=== PATIENT | male | born 1965 | race Caucasian/White ===

== ENCOUNTER 2016-07-21 09:53 | Emergency (ER) | payer OTHER ==
[~2016-07-21] VITALS: Ht 190.5 cm; Wt 99.1 kg
[2016-07-21 09:58] VITALS: BP 151/95; PULSE 67; RESP 16; TEMP 98.2; O2SAT 99
--- NOTE | 2016-07-21 10:20 | PD ---
HPI Chief Complaint: Injury Time Seen by Provider: 10:02 Travel History International Travel<30 days: No Contact w/Intl Traveler<30days: No Traveled to known affect area: No History of Present Illness HPI Is a 50-year-old man who presents to the emergency department complaining of left knee pain ongoing for 3 days. He states symptoms started after he was crouching down and stood up. He's had pain and swelling in the left leg in the since that time. Swelling goes down when he elevates the leg and comes back at the end of the day. He called his doctor who is worried that he may have a blood clot or an infection. 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 He's never really had trouble with his knee. He has pain and pressure behind the knee as well. He otherwise has been feeling generally well and healthy prior to this. History Past Medical History Narrative Medical History of left clavicle osteomyelitis Social History Alcohol Use: No Tobacco Use: No Allergies-Medications (Allergen,Severity, Reaction): Coded Allergies: Contrast Media (Unverified Allergy, Severe, rash, 07/21/16) Flagyl (Unverified Allergy, Severe, Blurred Vision, 07/21/16) Iodine (Verified Allergy, Severe, RASH, 07/21/16) Keflex (Verified Allergy, Severe, RASH, 07/21/16) Prednisone (Unverified Allergy, Severe, tingling sensation over body, 07/21) Reported Meds & Prescriptions Reported Meds & Active Scripts Active No Active Prescriptions or Reported Medications Review of Systems Except as stated in HPI: all other systems reviewed are Neg Physical Exam Narrative GENERAL: Well-appearing 50 year-old woman, no acute distress. SKIN: Warm and dry. CARDIOVASCULAR: Warm and well perfused. RESPIRATORY: Normal rate and effort. MUSCULOSKELETAL: Focus examination the left leg reveals left knee effusion. Is a little bit of fullness in the popliteal fossa as well. There is no calf tenderness. There is no erythema or redness. He has pretty preserved range of motion without much pain. He cannot fully flex knee says because of tightness in the knee. He has good pulses distally. There is a trace amount of warmth in the knee compared to the right. NEUROLOGICAL: Awake and alert. No gross deficits. Data Data Last Documented VS Vital Signs Date Time Temp Pulse Resp B/P Pulse Ox O2 Delivery O2 Flow Rate FiO2 07/21/16 09:58 98.2 67 16 151/95 99 Orders Knee, Complete (4vws) (07/21/16 ) Us Leg Venous Doppler (07/21/16 ) [facility] Medical Decision Making Medical Screen Exam Complete: Yes Emergency Medical Condition: Yes Interpretation(s) Left knee x-ray: Negative Doppler left lower extremity: Negative Differential Diagnosis Knee pain, internal derangement, arthritis, septic arthritis, DVT, other Narrative Course Medical decision making This is a 50-year-old man presents emergent heart complaining of left knee pain and swelling that started after he stood from a crouched position. He has an effusion there. I think he did in her something inside his knee. Suspect a meniscal tear or something similar. He has an obvious effusion. There is no evidence of DVT. There is no redness or limitation in his range of motion that would suggest a septic arthritis. Symptoms started abruptly after knee movement that would suggest an injury. We'll check x-ray, suspect will be normal except for an effusion. We'll recommend compression, and outpatient follow-up with his primary she is not well in one to 2 weeks, return for any worsening erythema, redness, or Swelling. Diagnosis Primary Impression: Left knee pain Qualified Code: M25.562 - Acute pain of left knee Additional Instructions: Wear Eddy wrap or on the left knee. Take ibuprofen or Aleve as needed for pain. Follow-up with her primary doctor if symptoms are not improved in 7-10 days. Return to the emergency department for any worsening pain redness swelling or any other new or worsening symptoms. Med/Other Pt SpecificInfo: No Change to Meds Scripts No Active Prescriptions or Reported Meds Disposition: 01 DISCHARGE HOME Condition: Stable Mehdi Rebollar MD Jul 21, 2016 10:20
--- NOTE | 2016-07-21 10:44 | RADHPO ---
EXAM DATE/TIME: 07/21/2016 10:22 [facility] COMPARISON: No previous studies available for comparison. INDICATIONS : Left knee pain with no known injury. MEDICAL HISTORY : None. SURGICAL HISTORY : None. ENCOUNTER: Initial ACUITY: 3 days PAIN SCORE: 2/10 LOCATION: Left above patella FINDINGS: Four view examination of the left knee demonstrates no evidence of fracture or dislocation. Bony min eralization is normal. The articular surfaces are intact. The suprapatellar soft tissues have a nor mal configuration. CONCLUSION: Negative for fracture or dislocation. Follow up in 7-10 days is suggested if symptoms persist.. Sundeep Arrieta MD FACR on July 21, 2016 at 10:42 Board Certified Radiologist. This report was verified electronically.
[2016-07-21 11:20] VITALS: BP 147/90; PULSE 79; RESP 16; O2SAT 97
--- NOTE | 2016-07-21 11:33 | RADHPO ---
EXAM DATE/TIME: 07/21/2016 11:08 [facility] COMPARISON: No previous studies available for comparison. INDICATIONS : Left leg pain and swelling. MEDICAL HISTORY : Osteomyelitis. Sleep apnea. Left leg and knee pain. SURGICAL HISTORY : Irrigation and debridement of left chest due to osteomyelitis. ENCOUNTER: Initial ACUITY: 4 - 6 days PAIN SCORE: 3/10 LOCATION: Left leg. TECHNIQUE: Venous ultrasound of the leg was performed from the inguinal ligament to the proximal calf. Real-time, color Doppler and spectral tracing, compression and augmentation techniques were us ed. FINDINGS: There is normal compressibility of the deep venous system from the inguinal region to the proximal ca lf. No echogenic clot is seen in the lumen of the common femoral, femoral, popliteal, and posterior tibial veins. There is a normal response of the venous system to proximal and distal augmentation an d respiration. CONCLUSION: Negative for deep venous thrombosis. Sundeep Arrieta MD FACR on July 21, 2016 at 11:31 Board Certified Radiologist. This report was verified electronically.
== END 2016-07-21 12:00 | disposition home or self-care (01) ==
LOC: PHED 09:53
DX: M25.562 Pain in left knee (principal); M79.89 Other specified soft tissue disorders
CPT/HCPCS: 73564; 93971

== ENCOUNTER 2016-09-18 23:23 | Emergency (ER) | payer OTHER ==
[~2016-09-18] VITALS: Ht 190.5 cm; Wt 98.5 kg
[2016-09-18 23:30] VITALS: BP 138/91; PULSE 63; RESP 18; TEMP 97.4; O2SAT 100
[2016-09-19] MEDS ORDERED: ONDANSETRON HCL 4 MG/2 ML VIAL IV PUSH ONE
[2016-09-19] MEDS ORDERED: SODIUM CHLOR 0.9% 1000 ML INJ 1,000 ML IV SCH
[2016-09-19] MEDS ORDERED: SODIUM CHLORIDE 0.9% FLUSH 10 ML FLUSH IV FLUSH PRN
--- NOTE | 2016-09-19 00:30 | RADHPO ---
EXAM DATE/TIME: 09/19/2016 00:20 [facility] COMPARISON: No previous studies available for comparison. INDICATIONS : Chest discomfort, nausea, abdominal pain. MEDICAL HISTORY : None. SURGICAL HISTORY : None. ENCOUNTER: Initial ACUITY: 1 day PAIN SCORE: 0/10 LOCATION: Bilateral chest FINDINGS: A single view of the chest demonstrates the lungs to be symmetrically aerated without evidence of mas s, infiltrate or effusion. The cardiomediastinal contours are unremarkable. Osseous structures are intact. CONCLUSION: Normal examination. Mehdi Adams MD on September 19, 2016 at 0:28 Board Certified Radiologist. This report was verified electronically.
[2016-09-19 00:31] LABS: AUTOMATED NEUTROPHIL # 7.5 TH/MM3 (1.8-7.7); BASOPHIL % 0.2 % (0.0-2.0); EOSINOPHIL # 0.2 TH/MM3 (0-0.4); EOSINOPHIL % 1.7 % (0.0-4.0); HEMATOCRIT 46.2 % (39.0-51.0); HEMO FLAGS DIFF FINAL; LYMPH % 14.1 % (9.0-44.0); LYMPHOCYTE # 1.4 TH/MM3 (1.0-4.8); MEAN CELL VOLUME 83.5 FL (80.0-100.0); MEAN CORPUSCULAR HEMOGLOBIN 27.1 PG (27.0-34.0); MEAN CORPUSCULAR HGB CONC 32.5 % (32.0-36.0); MONO % 4.9 % (0.0-8.0); NEUT % 79.1 % (16.0-70.0); PLATELET COUNT 194 TH/MM3 (150-450); RED BLOOD COUNT 5.53 MIL/MM3 (4.50-5.90); RED CELL DISTRIBUTION WIDTH 13.1 % (11.6-17.2); WHITE BLOOD COUNT 9.6 TH/MM3 (4.0-11.0)
[2016-09-19 00:42] LABS: CHLORIDE 103 MEQ/L (98-107); SODIUM (NA) 140 MEQ/L (136-145)
[2016-09-19 00:46] LABS: ANION GAP 7 MEQ/L (5-15); APTT (PATIENT) 27.8 SEC (24.3-30.1); BICARBONATE 29.7 MEQ/L (21.0-32.0); BLOOD UREA NITROGEN 15 MG/DL (7-18); PROTHROMBIN TIME - PATIENT 10.8 SEC (9.8-11.6)
[2016-09-19 00:49] LABS: ALT (GPT) 31 U/L (12-78); AST (GOT) 28 U/L (15-37); GLOMERULAR FILTRATION RATE 70 ML/MIN (>89)
[2016-09-19 00:50] VITALS: BP 135/80; PULSE 62; RESP 18; O2SAT 98
[2016-09-19 00:50] LABS: TOTAL BILIRUBIN ADULT 0.7 MG/DL (0.2-1.0)
[2016-09-19 00:52] LABS: ALKALINE PHOSPHATASE 73 U/L (45-117)
[2016-09-19 01:00] LABS: POTASSIUM 4.1 MEQ/L (3.5-5.1)
[2016-09-19 01:57] LABS: BLOOD, URINE NEG (NEG); GLUCOSE,URINE NEG (NEG); KETONE, URINE NEG (NEG); NITRITE,URINE NEG (NEG)
[2016-09-19 02:00] VITALS: BP 132/68; PULSE 60; RESP 16; O2SAT 97
[2016-09-19 02:06] LABS: COMMENT (UR) CULT NOT INDICATED; CULTURE IF INDICATED CULT NOT INDICATED; RBC, URINE 0-2 /hpf (0-3); SQUAMOUS EPITHELIAL CELL URINE 0-5 /hpf (0-5); URINE COLOR YELLOW (YELLW/STRAW); WBC, URINE 0-2 /hpf (0-5)
--- NOTE | 2016-09-19 02:11 | RADHPO ---
EXAM DATE/TIME: 09/19/2016 01:03 [facility] COMPARISON: CT BRAIN W/O CONTRAST, June 23, 2010, 7:56. INDICATIONS : Cephalgia. RADIATION DOSE: 64.21 CTDIvol (mGy) MEDICAL HISTORY : None SURGICAL HISTORY : None. ENCOUNTER: Initial ACUITY: 1 day PAIN SCALE: 8/10 LOCATION: Bilateral cranial TECHNIQUE: Multiple contiguous axial images were obtained of the head. Using automated exposure control and adj ustment of the mA and/or kV according to patient size, radiation dose was kept as low as reasonably a chievable to obtain optimal diagnostic quality images. FINDINGS: CEREBRUM: The ventricles are normal for age. No evidence of midline shift, mass lesion, hemorrhage or acute in farction. No extra-axial fluid collections are seen. POSTERIOR FOSSA: The cerebellum and brainstem are intact. The 4th ventricle is midline. The cerebellopontine angle i s unremarkable. EXTRACRANIAL: The visualized portion of the orbits is intact. SKULL: The calvaria is intact. No evidence of skull fracture. CONCLUSION: Normal examination. Mehdi Adams MD on September 19, 2016 at 2:09 Board Certified Radiologist. This report was verified electronically.
--- NOTE | 2016-09-19 02:15 | RADHPO ---
EXAM DATE/TIME: 09/19/2016 01:05 [facility] COMPARISON: CT ABDOMEN & PELVIS W/O CONTRAST, December 14, 2013, 0:47. INDICATIONS : Bilateral flank pain for one day. ORAL CONTRAST: No oral contrast ingested. RADIATION DOSE: 19.71 CTDIvol (mGy) MEDICAL HISTORY : None SURGICAL HISTORY : None. ENCOUNTER: Initial ACUITY: 1 day PAIN SCALE: 6/10 LOCATION: Bilateral flank TECHNIQUE: Volumetric scanning of the abdomen and pelvis was performed. Using automated exposure control and ad justment of the mA and/or kV according to patient size, radiation dose was kept as low as reasonably achievable to obtain optimal diagnostic quality images. FINDINGS: LOWER LUNGS: The visualized lower lungs are clear. LIVER: Homogeneous density without lesion. There is no dilation of the biliary tree. No calcified gallston es. SPLEEN: Normal size without lesion. PANCREAS: Within normal limits. Some fatty replacement unchanged KIDNEYS: Normal in size and shape. There is no mass, stone, or hydronephrosis except for 2 small cyst right k idney. ADRENAL GLANDS: Within normal limits. VASCULAR: There is no aortic aneurysm. BOWEL/MESENTERY: The stomach, small bowel, and colon demonstrate no acute abnormality. There is no free intraperitone al air or fluid. ABDOMINAL WALL: Within normal limits. RETROPERITONEUM: There is no lymphadenopathy. BLADDER: No wall thickening or mass. REPRODUCTIVE: Within normal limits. INGUINAL: There is no lymphadenopathy or hernia. MUSCULOSKELETAL: Within normal limits for patient age. CONCLUSION: No evidence of acute renal stone or obstruction. Unremarkable study Mehdi Adams MD on September 19, 2016 at 2:12 Board Certified Radiologist. This report was verified electronically.
[2016-09-19] MEDS ORDERED: KETOROLAC TROMETHAMINE 30 MG/ML (IVP) VIAL IV PUSH ONE (02:30)
[2016-09-19] MEDS ORDERED: SODIUM CHLOR 0.9% 1000 ML INJ 1,000 ML IV ONE (02:30)
[2016-09-19 03:08] VITALS: BP 139/69; PULSE 64; RESP 17; O2SAT 97
[2016-09-19] MEDS ORDERED: ZOFR4TAB3 SL (03:08)
--- NOTE | 2016-09-19 03:09 | PD ---
HPI Chief Complaint: GI Complaint Time Seen by Provider: 23:54 Travel History International Travel<30 days: No Contact w/Intl Traveler<30days: No Traveled to known affect area: No History of Present Illness HPI 50 year-old male presents to the emergency department by private vehicle the care of his family for complaint of not feeling well times one week and having headache 1 day. Sudden onset not thunderclap but feels like maybe a migraine. Patient has family history of migraine. Patient does not report personal history of migraine. Patient is states headache is 8/10 in intensity. Patient did take Tylenol without relief. Patient denies fever or chills. No neck stiffness. No sore throat or sinus pressure drainage. No chest pain or shortness of breath. Patient's had nausea no vomiting. No visual disturbance other than light sensitivity. No focal upper or lower extremity numbness tingling or weakness or ataxia gait. Patient states he just feels tired. Patient is unable to identify exacerbating or alleviating factors. No family history of subarachnoid hemorrhage. PFSH Past Medical History Narrative Medical Headaches; clavicle osteomyelitis; nursing notes reviewed Cancer: No Cardiovascular Problems: No Diabetes: No Diminished Hearing: No Endocrine: No Genitourinary: No Headaches: Yes Hepatitis: No Hiatal Hernia: No Immune Disorder: No Musculoskeletal: Yes (low back) Neurologic: Yes (occ migraines) Psychiatric: No Reproductive: No Respiratory: Yes (sleep apnea) Immunizations Current: Yes Thyroid Disease: No Influenza Vaccination: Yes Past Surgical History AICD: No Pacemaker: No Other Surgery: Yes (OSTEOMYLITIS 20 YEARS AGO; BIOPSY LEFT EYE AREA) Social History Alcohol Use: No Tobacco Use: No Substance Use: No Allergies-Medications (Allergen,Severity, Reaction): Coded Allergies: Contrast Media (Unverified Allergy, Severe, rash, 09/19/16) Flagyl (Unverified Allergy, Severe, Blurred Vision, 09/19/16) Iodine (Verified Allergy, Severe, RASH, 09/19/16) Keflex (Verified Allergy, Severe, RASH, 09/19/16) Prednisone (Unverified Allergy, Severe, tingling sensation over body, 09/19) Reported Meds & Prescriptions Reported Meds & Active Scripts Active Zofran Odt (Ondansetron Odt) 4 Mg Tab 4 Mg SL Q6HR PRN Review of Systems Except as stated in HPI: all other systems reviewed are Neg General / Constitutional: No: Fever, Chills HENT: Positive: Headaches, No: Congestion, Neck Stiffness Cardiovascular: No: Chest Pain or Discomfort Respiratory: No: Shortness of Breath Gastrointestinal: Positive: Nausea, No: Abdominal Pain Genitourinary: No: Flank Pain Musculoskeletal: No: Myalgias, Arthralgias Skin: No Rash Neurologic: Positive: Weakness, Headache, No: Dizziness, Syncope, Focal Abnormalities, Coordination Problem Psychiatric: No: Anxiety Endocrine: No: Heat Intolerance Hematologic/Lymphatic: No: Easy Bruising Physical Exam Narrative GENERAL: Well-developed well-nourished mildly ill-appearing male with eyes covered with sheet; gcs 15 SKIN: Warm and dry. HEAD: Atraumatic. Normocephalic. EYES: Pupils equal and round. No scleral icterus. No injection or drainage. ENT: No nasal bleeding or discharge. Mucous membranes pink and moist. NECK: Trachea midline. No JVD. No meningismus no nuchal rigidity CARDIOVASCULAR: Regular rate and rhythm. RESPIRATORY: No accessory muscle use. Clear to auscultation. Breath sounds equal bilaterally. GASTROINTESTINAL: Abdomen soft, non-tender, nondistended. Hepatic and splenic margins not palpable. MUSCULOSKELETAL: Extremities without clubbing, cyanosis, or edema. No obvious deformities. NEUROLOGICAL: Awake and alert. No obvious cranial nerve deficits. Motor grossly within normal limits. Five out of 5 muscle strength in the arms and legs. No pronator drift. No limb ataxia. Sensory exam intact. DTRs 2+ and equal Normal speech. PSYCHIATRIC: Appropriate mood and affect; insight and judgment normal. Data Data Last Documented VS Vital Signs Date Time Temp Pulse Resp B/P Pulse Ox O2 Delivery O2 Flow Rate FiO2 09/19/16 03:30 16 09/19/16 03:25 98 09/19/16 03:08 64 139/69 Room Air 09/18/16 23:30 97.4 Orders Complete Blood Count With Diff (09/18/16 23:54) Comprehensive Metabolic Panel (09/18/16 23:54) Lipase (09/18/16 23:54) Lactic Acid (09/18/16 23:54) Prothrombin Time / Inr (Pt) (09/18/16 23:54) Act Partial Throm Time (Ptt) (09/18/16 23:54) Urinalysis - C+S If Indicated (09/18/16 23:54) Iv Access Insert/Monitor (09/18/16 23:54) Ecg Monitoring (09/18/16 23:54) Oximetry (09/18/16 23:54) Sodium Chloride 0.9% Flush (Ns Flush) (09/19/16 00:00) Chest, Single Ap (09/18/16 23:54) Sodium Chlor 0.9% 1000 Ml Inj (Ns 1000 M (09/19/16 00:00) Ondansetron Inj (Zofran Inj) (09/19/16 00:00) Ct Abd/Pel W/O Iv Contrast (09/19/16 00:02) Ct Brain W/O Iv Contrast(Rout) (09/19/16 00:02) Sodium Chlor 0.9% 1000 Ml Inj (Ns 1000 M (09/19/16 02:30) Ketorolac Inj (Toradol Inj) (09/19/16 02:30) Labs Laboratory Tests Test 09/19/16 00:10 White Blood Count 9.6 TH/MM3 Red Blood Count 5.53 MIL/MM3 Hemoglobin 15.0 GM/DL Hematocrit 46.2 % Mean Corpuscular Volume 83.5 FL Mean Corpuscular Hemoglobin 27.1 PG Mean Corpuscular Hemoglobin 32.5 % Concent Red Cell Distribution Width 13.1 % Platelet Count 194 TH/MM3 Mean Platelet Volume 8.8 FL Neutrophils (%) (Auto) 79.1 % Lymphocytes (%) (Auto) 14.1 % Monocytes (%) (Auto) 4.9 % Eosinophils (%) (Auto) 1.7 % Basophils (%) (Auto) 0.2 % Neutrophils # (Auto) 7.5 TH/MM3 Lymphocytes # (Auto) 1.4 TH/MM3 Monocytes # (Auto) 0.5 TH/MM3 Eosinophils # (Auto) 0.2 TH/MM3 Basophils # (Auto) 0.0 TH/MM3 CBC Comment DIFF FINAL Differential Comment Prothrombin Time 10.8 SEC Prothromb Time International 1.0 RATIO Ratio Activated Partial 27.8 SEC Thromboplast Time Urine Color YELLOW Urine Turbidity SLIGHT Urine pH 7.0 Urine Specific [place] 1.016 Urine Protein TRACE mg/dL Urine Glucose (UA) NEG mg/dL Urine Ketones NEG mg/dL Urine Occult Blood NEG Urine Nitrite NEG Urine Bilirubin NEG Urine Leukocyte Esterase NEG Urine RBC 0-2 /hpf Urine WBC 0-2 /hpf Urine Squamous Epithelial 0-5 /hpf Cells Urine Amorphous Sediment MOD Urine Bacteria NONE /hpf Microscopic Urinalysis Comment CULT NOT INDICATED Sodium Level 140 MEQ/L Potassium Level 4.1 MEQ/L Chloride Level 103 MEQ/L Carbon Dioxide Level 29.7 MEQ/L Anion Gap 7 MEQ/L Blood Urea Nitrogen 15 MG/DL Creatinine 1.10 MG/DL Estimat Glomerular Filtration 70 ML/MIN Rate Random Glucose 139 MG/DL Lactic Acid Level 1.3 mmol/L Calcium Level 8.7 MG/DL Total Bilirubin 0.7 MG/DL Aspartate Amino Transf 28 U/L (AST/SGOT) Alanine Aminotransferase 31 U/L (ALT/SGPT) Alkaline Phosphatase 73 U/L Total Protein 7.2 GM/DL Albumin 3.7 GM/DL Lipase 66 U/L MDM Medical Decision Making Medical Screen Exam Complete: Yes Emergency Medical Condition: Yes Medical Record Reviewed: Yes Interpretation(s) Last Impressions Head CT 09/19/16 0002 Signed Impressions: Service Date/Time: Monday, September 19, 2016 01:03 - CONCLUSION: Normal examination. Mehdi Adams MD Abdomen/Pelvis CT 09/19/16 0002 Signed Impressions: Service Date/Time: Monday, September 19, 2016 01:05 - CONCLUSION: No evidence of acute renal stone or obstruction. Unremarkable study Mehdi Adams MD Chest X-Ray 09/18/16 2354 Signed Impressions: Service Date/Time: Monday, September 19, 2016 00:20 - CONCLUSION: Normal examination. Mehdi Adams MD CBC & BMP Diagram 09/19/16 00:10 Differential Diagnosis Cephalgiatensionvascular ICH migraineclusterviraldehydrationother Narrative Course IV access obtained specimens collected and sent for resulting discussed in detail with family need for imaging of the brain and patient is sudden onset thunderclap or worst ever may need to proceed with lumbar puncture to further delineate rule out subarachnoid hemorrhage. Patient unwilling to have LP at this time and wants to think about it CT brain noncontrast reveals no acute abnormality patient notes feels improved after 1 L of normal saline and no nausea no vomiting Discussed again lumbar puncture patient refuses this at this time states he isn' t better but not completely better pain is 0/10 intensity patient again has no meningismus or nuchal rigidity. On exam administered Toradol 30 mg IV Patient reports pain is essentially resolved nearly resolved is desirous of being discharged to home and does not want any further intervention procedure performed at this time; discussed with patient and family. Diagnosis Primary Impression: Cephalgia Qualified Code: R51 - Nonintractable headache, unspecified chronicity pattern , unspecified headache type Referrals: Primary Care Physician call for appointment Patient Instructions: General Instructions Additional Instructions: Increase fluid hydration Take medication as prescribed as needed for nausea and/or vomiting Monitor temperature every 4 hours with thermometer and take acetaminophen/ Tylenol every 4 hours as needed for fever 100.4F or greater Follow-up with primary care provider call office in a.m. to schedule follow-up appointment Return to the emergency department for any concerns or fever pain vomiting or change in condition Med/Other Pt SpecificInfo: Prescription(s) given Scripts Ondansetron Odt (Zofran Odt)4 Mg Tab4 Mg SL Q6HR PRN (Nausea/Vomiting) #10 TAB Ref 0 Prov:Kierra Benavides MD 09/19/16 Disposition: DISCHARGE HOME Condition: Stable Kierra Benavides MD September 19, 2016 03:09
[2016-09-19 03:30] VITALS: RESP 16
== END 2016-09-19 03:26 | disposition home or self-care (01) ==
LOC: PHED 23:23
DX: R51 Headache (principal); R53.1 Weakness; R11.0 Nausea
CPT/HCPCS: 70450; 71010; 74176; 80053; 81001; 83605; 83690; 85025; 85610; 85730; 96361; 96374; 99285; J1885; J2405; J7030